=== PATIENT | male | born 1945 | race Caucasian/White ===

== ENCOUNTER 2017-05-15 21:53 | Inpatient (IN) | payer OTHER ==
[~2017-05-15] VITALS: Ht 172.7 cm; Wt 95.6 kg
[~2017-05-15 21:53] MED LIST: AZOR 10/40 M1 TABLET PO; SIMVASTATIN20 MG PO
[2017-05-15 23:12] LABS: EOSINOPHIL (%) 0.1 % (0-5); HEMATOCRIT 43.6 % (38.0-50.0); IMMATURE GRANULOCYTE (%) 1.9 % (0.0-0.7); IMMATURE GRANULOCYTE COUNT 0.3 K/uL; INSTRUMENT ABS NEUTROPHIL CT 8.2 K/uL; LYMPHOCYTE COUNT 6.8 K/uL (1.0-2.8); MCH 28.8 PG (29.0-34.0); MCHC 33.5 G/DL (30.0-36.0); MEAN PLAT.VOLUME 10.1 uM^3 (9.0-12.4); MONOCYTE (%) 12.5 % (3-12); MONOCYTE COUNT 2.2 K/uL (0-0.8); NEUTROPHIL (%) 46.9 % (45-76); NEUTROPHIL COUNT 8.2 K/uL (1.8-6.4); PLATELET COUNT 174 K/uL (156-360); RBC DIS.WIDTH-CV 12.7 % (11.8-14.6); RBC DIS.WIDTH-SD 39.6 % (39-53); RED BLOOD COUNT 5.07 M/uL (4.00-5.50); WHITE BLOOD COUNT 17.6 K/uL (4.1-10.2)
[2017-05-15 23:32] LABS: CHLORIDE 102 mEq/L (99-109); POTASSIUM 3.7 mEq/L (3.7-5.4); SODIUM 136 mEq/L (136-147)
[2017-05-15 23:34] LABS: GLUCOSE 124 mg/dL (70-99)
[2017-05-15 23:35] LABS: ANION GAP 10 MEQ/L (2-14)
[2017-05-15 23:36] LABS: TOTAL BILIRUBIN 1.3 mg/dL (0.0-1.0)
[2017-05-15 23:38] LABS: ALKALINE PHOSPHATASE 58 IU/L (3-129); GFR ESTIMATE (CALCULATED) > 59 mL/min/
[2017-05-15 23:39] LABS: UREA NITROGEN (BUN) 15 mg/dL (9-23)
[2017-05-15 23:42] LABS: TROP-I INTERPRETATION NEGATIVE; TROPONIN-I 0.03 ng/mL (0.0-0.30)
[2017-05-16 00:20] LABS: ADD MIUA? YES; BILIRUBIN NEGATIVE; BLOOD MODERATE; COLOR YELLOW ((YELLOW)); GLUCOSE (STRIP) NEGATIVE; KETONES NEGATIVE; LEUKOCYTES NEGATIVE; NITRITE NEGATIVE; PROTEIN (STRIP) NEGATIVE; SPECIFIC GRAVITY 1.009 (1.000-1.030); UROBILINOGEN 0.2 MG/DL (0.2-1.0)
[2017-05-16 00:24] LABS: BACTERIA NONE SEEN /HPF; EPITHELIAL CELLS NONE SEEN /HPF; MUCUS TRACE /LPF; RED BLOOD CELLS 20-30 /HPF (0-5); UCUL ADDED? NO; WHITE BLOOD CELLS 0-5 /HPF (0-5)
[2017-05-16] MEDS ORDERED: IMBRUVICA140 MG PO (02:04)
[2017-05-16] MEDS ORDERED: LOPRESSOR50 MG PO (02:04)
[2017-05-16] MEDS ORDERED: LOSARTAN POTAS100 MG PO (02:04)
[2017-05-16] MEDS ORDERED: IRON325 M1 PO (02:05)
[2017-05-16] MEDS ORDERED: OMEPRAZOLE40 M1 PO (02:05)
[2017-05-16] MEDS ORDERED: NITROSTAT0.4 MG SL (02:06)
[2017-05-16] MEDS ORDERED: SENNA8.6 MG PO (02:06)
[2017-05-16 03:00] VITALS: BP 164/81
[2017-05-16 04:00] VITALS: BP 164/80
[2017-05-16 07:00] VITALS: BP 181/83
[2017-05-16 11:26] VITALS: BP 161/74
[2017-05-16 13:48] LABS: HEMATOCRIT 44.1 % (38.0-50.0); MCH 28.7 PG (29.0-34.0); MCHC 32.4 G/DL (30.0-36.0); MCV 88.6 FL (86-99); MEAN PLAT.VOLUME 9.8 uM^3 (9.0-12.4); PLATELET COUNT 174 K/uL (156-360); RBC DIS.WIDTH-CV 12.9 % (11.8-14.6); RBC DIS.WIDTH-SD 42.2 % (39-53); RED BLOOD COUNT 4.98 M/uL (4.00-5.50); WHITE BLOOD COUNT 13.3 K/uL (4.1-10.2)
[2017-05-16 14:14] LABS: ALKALINE PHOSPHATASE 43 IU/L (3-129); ANION GAP 6 MEQ/L (2-14); CHLORIDE 106 MEQ/L (99-109); DIRECT BILIRUBIN 0.3 mg/dL (0.0-0.3); GFR ESTIMATE (CALCULATED) > 59 mL/min/; GLUCOSE 104 mg/dL (70-99); SAMPLE HEMOLYSIS CHECK 0; SAMPLE ICTERIC CHECK 0; SAMPLE LIPEMIA CHECK 0; SODIUM 138 MEQ/L (136-147); TOTAL BILIRUBIN 0.9 MG/DL (0.0-1.0); UREA NITROGEN (BUN) 13 mg/dL (9-23)
[2017-05-16 15:31] VITALS: BP 179/81
[2017-05-17 01:58] VITALS: BP 158/82
[2017-05-17 06:41] VITALS: BP 190/86
[2017-05-17 06:46] LABS: MCH 28.8 PG (29.0-34.0); MCHC 32.6 G/DL (30.0-36.0); MCV 88.2 FL (86-99); MEAN PLAT.VOLUME 10.3 uM^3 (9.0-12.4); PLATELET COUNT 150 K/uL (156-360); RBC DIS.WIDTH-CV 12.7 % (11.8-14.6); RBC DIS.WIDTH-SD 41.1 % (39-53); RED BLOOD COUNT 4.76 M/uL (4.00-5.50); WHITE BLOOD COUNT 13.4 K/uL (4.1-10.2)
[2017-05-17 07:09] LABS: ANION GAP 8 MEQ/L (2-14); CHLORIDE 104 MEQ/L (99-109); GFR ESTIMATE (CALCULATED) > 59 mL/min/; GLUCOSE 106 mg/dL (70-99); POTASSIUM 3.7 MEQ/L (3.7-5.4); SAMPLE HEMOLYSIS CHECK 0; SAMPLE ICTERIC CHECK 0; SAMPLE LIPEMIA CHECK 0; SODIUM 140 MEQ/L (136-147); UREA NITROGEN (BUN) 16 mg/dL (9-23)
[2017-05-17 09:40] VITALS: BP 158/78
[2017-05-17 15:06] VITALS: BP 183/79
[2017-05-17 15:46] VITALS: BP 134/72
[2017-05-18 01:33] VITALS: BP 125/62
[2017-05-18 06:59] LABS: EOSINOPHIL (%) 0.6 % (0-5); EOSINOPHIL COUNT 0.1 K/uL (0-0.3); HEMATOCRIT 40.8 % (38.0-50.0); IMMATURE GRANULOCYTE (%) 1.7 % (0.0-0.7); IMMATURE GRANULOCYTE COUNT 0.2 K/uL; INSTRUMENT ABS NEUTROPHIL CT 5.8 K/uL; LYMPHOCYTE COUNT 4.9 K/uL (1.0-2.8); MCH 29.8 PG (29.0-34.0); MCHC 33.8 G/DL (30.0-36.0); MCV 88.1 FL (86-99); MEAN PLAT.VOLUME 10.3 uM^3 (9.0-12.4); MONOCYTE (%) 10.4 % (3-12); MONOCYTE COUNT 1.3 K/uL (0-0.8); NEUTROPHIL (%) 47.2 % (45-76); NEUTROPHIL COUNT 5.8 K/uL (1.8-6.4); PLATELET COUNT 163 K/uL (156-360); RBC DIS.WIDTH-CV 12.9 % (11.8-14.6); RBC DIS.WIDTH-SD 41.7 % (39-53); RED BLOOD COUNT 4.63 M/uL (4.00-5.50); WHITE BLOOD COUNT 12.3 K/uL (4.1-10.2)
[2017-05-18 07:10] LABS: ANION GAP 9 MEQ/L (2-14); CHLORIDE 105 MEQ/L (99-109); GFR ESTIMATE (CALCULATED) > 59 mL/min/; GLUCOSE 116 mg/dL (70-99); POTASSIUM 3.8 MEQ/L (3.7-5.4); SAMPLE HEMOLYSIS CHECK 0; SAMPLE ICTERIC CHECK 0; SAMPLE LIPEMIA CHECK 0; SODIUM 140 MEQ/L (136-147); UREA NITROGEN (BUN) 17 mg/dL (9-23)
[2017-05-18 07:20] VITALS: BP 161/77
[2017-05-18] MEDS ORDERED: AMLODIPINE BESYL5 MG PO (13:04)
[2017-05-18] MEDS ORDERED: ROCEPHIN 2 GM VI2 GM IM (13:05)
[2017-05-20] MEDS ORDERED: ASPIRIN325 MG PO (17:40)
== END 2017-05-18 16:44 | disposition home or self-care (01) | DRG 690 ==
LOC: EME 21:53 → EDOF 05-16 02:00 → 5EAST 05-16 02:00 → ENRESERV 05-16 02:04 → 5EAST 05-16 04:00 → ENPENDDIS 05-18 → 5EAST 05-18 16:44
PROVIDERS: Emergency Medicine; Hospitalist; Internal Medicine
DX: N12 Tubulo-interstitial nephritis, not specified as acute or chronic (principal); C91.10 Chronic lymphocytic leukemia of B-cell type not having achieved remission; L03.312 Cellulitis of back [any part except buttock and flank]; R31.29 Other microscopic hematuria; C44.90 Unspecified malignant neoplasm of skin, unspecified; D50.9 Iron deficiency anemia, unspecified; R09.02 Hypoxemia; E78.5 Hyperlipidemia, unspecified; I10 Essential (primary) hypertension; I25.10 Atherosclerotic heart disease of native coronary artery without angina pectoris; K21.9 Gastro-esophageal reflux disease without esophagitis; Z95.5 Presence of coronary angioplasty implant and graft
CPT/HCPCS: 71020; 71275; 74176; 80048; 80053; 80076; 81003; 82948; 83605; 84484; 85025; 85027; 87040; 87086; 94799; 99281; 99285; J0696; J1644; J1885; J2543; J3370; J7030; J7050

== ENCOUNTER → 2017-10-10 | Outpatient (CLI) | payer OTHER ==
[~2017-10-10] MED LIST changes: +AMLODIPINE BESYL5 MG PO; +ASPIRIN325 MG PO; +IMBRUVICA140 MG PO; +IRON325 M1 PO; +LOPRESSOR50 MG PO; +LOSARTAN POTAS100 MG PO; +NITROSTAT0.4 MG SL; +OMEPRAZOLE40 M1 PO; +ROCEPHIN 2 GM VI2 GM IM; +SENNA8.6 MG PO
== END | disposition home or self-care (01) ==
LOC: AMB 09:13
PROC: 0HR1X74 Replacement of Face Skin with Autologous Tissue Substitute, Partial Thickness, External Approach (ICD-10-PCS; principal; 2017-10-10)
DX: C44.329 Squamous cell carcinoma of skin of other parts of face (principal)